=== PATIENT | female | born 1950 | race Caucasian/White ===

== ENCOUNTER 2021-05-20 18:19 | Emergency (ER) | payer MEDICARE ==
[~2021-05-20] VITALS: Ht 160 cm; Wt 64.9 kg
[2021-05-20] MEDS ORDERED: TRAMADOL 50 MG50 MG PO (18:31)
[2021-05-20] MEDS ORDERED: NEURONTIN 300M300 M2 PO (18:31)
[2021-05-20] MEDS ORDERED: OMEPRAZOLE10 MG PO (18:32)
[2021-05-20] MEDS ORDERED: APAP W/CODEINE1 TA2 PO (19:17)
[2021-05-20 19:35] VITALS: BP 151/70
== END 2021-05-20 19:38 | disposition home or self-care (01) ==
LOC: M.ERS 18:19
DX: M25.572 Pain in left ankle and joints of left foot (principal)